=== PATIENT | male | born 2000 | race Caucasian/White ===

== ENCOUNTER 2021-08-01 12:31 | Emergency (ER) | payer OTHER ==
[~2021-08-01] VITALS: Ht 172.7 cm; Wt 73.9 kg
[2021-08-01] MEDS ORDERED: LAMICTAL200 MG PO (12:51)
[2021-08-01] MEDS ORDERED: XANAX2 MG PO (12:51)
[2021-08-01] MEDS ORDERED: ONDANSETRON ODT8 MG PO (15:30)
== END 2021-08-01 15:40 | disposition home or self-care (01) ==
LOC: ED 12:31
DX: K52.9 Noninfective gastroenteritis and colitis, unspecified (principal); Z88.0 Allergy status to penicillin
CPT/HCPCS: 36415; 80048; 81001; 85025; 96374; 99284-25; J2405; J7030

== ENCOUNTER 2025-05-12 17:40 | Emergency (ER) | payer OTHER ==
[~2025-05-12] VITALS: Ht 172.7 cm; Wt 73.9 kg
[~2025-05-12 17:40] MED LIST: LAMICTAL200 MG PO; ONDANSETRON ODT8 MG PO; XANAX2 MG PO
[2025-05-12 21:56] LABS: BASOPHILS 0.7 % (0.2-1.2); EOSINOPHILS 3.8 % (0.8-7.0); LYMPHOCYTES 31.9 % (21.8-53.1); MCH 29.8 PG (25.7-32.2); MCHC 33.5 g/dL (32.3-36.5); MCV 89.1 fL (79.0-92.2); MONOCYTES 8.0 % (5.3-12.2); NEUTROPHILS 55.3 % (34.0-67.9); RBC 4.86 M/uL (4.63-6.08)
[2025-05-12 22:28] LABS: ALT (SGPT) 41.0 U/L (14-59); AST (SGOT) 13.0 U/L (15-37); GLOMERULAR FILTRATION RATE,EST 122.0 mL/min (>60); PROTEIN, TOTAL 7.7 g/dL (6.4-8.2); UREA NITROGEN 16.0 mg/dL (7-18)
[2025-05-13] MEDS ORDERED: methylPREDNISolone 4 MG HOME.PACK PO ONE (01:00)
[2025-05-13] MEDS ORDERED: DOXYCYCLINE HYCLATE 100 MG HOME.PACK PO ONE (01:00)
[2025-05-13 01:31] VITALS: BP 135/67
== END 2025-05-13 01:32 | disposition home or self-care (01) ==
LOC: ED 17:40
PROVIDERS: Family Medicine
DX: L03.116 Cellulitis of left lower limb (principal); Z88.0 Allergy status to penicillin
CPT/HCPCS: 36415; 80053; 83735; 83880; 84550; 85025; 85379; 86140; 99283; A9270